=== PATIENT | female | born 1970 | race Caucasian/White ===

== ENCOUNTER 2018-08-19 09:46 | Emergency (ER) | payer BC, MEDICAID ==
--- NOTE | 2018-08-19 10:42 | EDM.PDOC ---
ED HPI GENERAL MEDICAL PROBLEM - General Stated Complaint: SICK Time Seen by Provider: 08/19/18 09:46 Source of Information: Reports: Patient, Family History Limitations: Reports: No Limitations - History of Present Illness INITIAL COMMENTS - FREE TEXT/NARRATIVE: 48 y.o.w.f came with her duet to acute onset of N/V/D in the past few days. No trauma, possible sick contact. Food poisoning unlikely, no SOB or chest pain. No other acute med issue. BP 117/99 RR 18 Pulse ox 100% on RA Temp 36.4 pulse 87 Onset Date: 08/18/18 Onset Time: 09:00 Duration: Day(s):, Getting Worse, Intermittent Location: Reports: Abdomen Quality: Reports: Burning Severity: Moderate Improves with: Reports: Rest Worsens with: Reports: Eating Context: Reports: Sick Contact Associated Symptoms: Reports: Nausea/Vomiting Bilateral rib & lower back Pain Score (Numeric/FACES): 5 - Related Data Allergies Allergy/AdvReac Type Severity Reaction Status Date / Time bee venom protein (honey bee) Allergy Difficulty Verified 08/19/18 10:09 Swallowing Home Meds: Home Meds Ciprofloxacin 500 mg PO BID #20 ml 08/19/18 [Rx] EPINEPHrine [Epinephrine] 0.3 ml IM ASDIRECTED PRN 08/19/18 [History] Ondansetron [Zofran Odt] 8 mg PO Q6H PRN #12 tab.rapdis 08/19/18 [Rx] ED ROS GENERAL - Review of Systems Review Of Systems: See Below Constitutional: Reports: No Symptoms HEENT: Reports: No Symptoms Respiratory: Reports: No Symptoms Cardiovascular: Reports: No Symptoms Endocrine: Reports: No Symptoms GI/Abdominal: Reports: Diarrhea, Nausea, Vomiting : Reports: No Symptoms Musculoskeletal: Reports: No Symptoms Skin: Reports: No Symptoms Neurological: Reports: No Symptoms Psychiatric: Reports: No Symptoms Hematologic/Lymphatic: Reports: No Symptoms Immunologic: Reports: No Symptoms ED EXAM, GENERAL - Physical Exam Exam: See Below Exam Limited By: No Limitations General Appearance: Alert, WD/WN, Moderate Distress Eye Exam: Bilateral Eye: Normal Inspection Ears: Normal External Exam Ear Exam: Bilateral Ear: Auricle Normal Nose: Normal Inspection Throat/Mouth: Normal Inspection, Normal Lips, Normal Voice, No Airway Compromise , Other (dryu mucosal membrane) Head: Atraumatic, Normocephalic Neck: Normal Inspection, Supple Respiratory/Chest: No Respiratory Distress, Lungs Clear, Normal Breath Sounds Cardiovascular: Normal Peripheral Pulses, Regular Rate, Rhythm Peripheral Pulses: 2+: Brachial (L) GI/Abdominal: No Organomegaly, No Abnormal Bruit, No Mass, Pelvis Stable, Abnormal Bowel Sounds (Female) Exam: Deferred Rectal (Female) Exam: Deferred Back Exam: Normal Inspection, Full Range of Motion Extremities: Normal Inspection, Normal Range of Motion Neurological: Alert, Oriented, CN II-XII Intact, Normal Cognition, Normal Gait Psychiatric: Normal Affect, Normal Mood Skin Exam: Warm, Dry, Intact, Normal Color, No Rash Lymphatic: No Adenopathy EKG INTERPRETATION EKG Date: 08/19/18 Time: 10:10 Rhythm: NSR Rate (Beats/Min): 87 [place]: Normal P-Wave: Present QRS: Normal ST-T: Normal QT: Normal Comparison: NA - No Prior EKG Course - Vital Signs Text/Narrative:: 48 y.o.w.f came with her duet to acute onset of N/V/D in the past few days. No trauma, possible sick contact. Food poisoning unlikely, no SOB or chest pain. No other acute med issue. BP 117/99 RR 18 Pulse ox 100% on RA Temp 36.4 pulse 87 PE: WNWD W F with acute gastroenteritis Labs: CBC nl BMP: Mildly elevated AST/ALT UA: UTI with hematuria Impression: Gastroenteritis viral UTI dehydration Tx: Zofran, NS, Levaquin Reexam: Improved Plan: D/C with instructions Last Recorded V/S: Last Vital Signs Temp 36.4 C 08/19/18 10:05 Pulse 74 08/19/18 12:35 Resp 18 08/19/18 12:35 BP 146/76 H 08/19/18 12:35 Pulse Ox 99 08/19/18 12:35 - Orders/Labs/Meds Orders: Active Orders 24 hr Category Date Time Status EKG Documentation Completion [RC] ASDIRECTED Care 08/19/18 13:50 Active CULTURE URINE [RM] Stat Lab 08/19/18 10:25 Results EKG 12 Lead [EK] Routine Ther 08/19/18 10:00 Ordered Labs: Laboratory Tests 08/19/18 08/19/18 08/19/18 Range/Units 10:25 10:25 10:25 WBC 7.9 (4.5-12.0) X10-3/uL RBC 4.67 (3.23-5.20) x10(6)uL Hgb 13.4 (11.5-15.5) g/dL Hct 40.2 (30.0-51.3) % MCV 86.0 (80-96) fL MCH 28.6 (27.7-33.6) pg MCHC 33.3 (32.2-35.4) g/dL RDW 13.1 (11.5-15.5) % Plt Count 310 (125-369) X10(3)uL MPV 7.8 (7.4-10.4) fL Neut % (Auto) 71.6 (46-82) % Lymph % (Auto) 22.3 (13-37) % [place] % (Auto) 4.7 (4-12) % Eos % (Auto) 1 (1.0-5.0) % Baso % (Auto) 0 (0-2) % Neut # (Auto) 5.6 (1.6-8.3) # Lymph # (Auto) 1.8 (0.6-5.0) # [place] # (Auto) 0.4 (0.0-1.3) # Eos # (Auto) 0.1 (0.0-0.8) # Baso # (Auto) 0.0 (0.0-0.2) # Sodium 138 (135-145) mmol/L Potassium 4.0 (3.5-5.3) mmol/L Chloride 102 (100-110) mmol/L Carbon Dioxide 24 (21-32) mmol/L BUN 14 (7-18) mg/dL Creatinine 0.9 (0.55-1.02) mg/dL Est Cr Clr Drug Dosing 67.29 mL/min Estimated GFR (MDRD) > 60 (>60) BUN/Creatinine Ratio 15.6 (9-20) Glucose 128 H (80-116) mg/dL Lactic Acid (0.4-2.2) mmol/L Calcium 8.4 L (8.6-10.2) mg/dL Total Bilirubin (0.1-1.3) mg/dL Direct Bilirubin (0.10-0.20) mg/dL AST (5-25) IU/L ALT (12-36) U/L Alkaline Phosphatase (56-112) IU/L Creatine Kinase 25 L (60-160) IU/L Total Protein (6.0-8.0) g/dL Albumin (3.5-5.2) g/dL Urine Color Yellow (YELLOW) Urine Appearance Cloudy (CLEAR) Urine pH 5.0 (5.0-6.5) Ur Specific [place] 1.025 (1.010-1.025) Urine Protein Negative (NEGATIVE) mg/dL Urine Glucose (UA) Normal (NORMAL) mg/dL Urine Ketones Negative (NEGATIVE) mg/dL Urine Occult Blood Moderate H (NEGATIVE) Urine Nitrite Negative (NEGATIVE) Urine Bilirubin Small H (NEGATIVE) Urine Urobilinogen 1 H (NEGATIVE) mg/dL Ur Leukocyte Esterase Moderate H (NEGATIVE) Urine RBC 5-10 H (0-5) Urine WBC 20-30 H (0-5) Ur Squamous Epith Cells Moderate H (NS,R,O) Urine Bacteria Many H (NS) 08/19/18 08/19/18 Range/Units 10:25 10:25 WBC (4.5-12.0) X10-3/uL RBC (3.23-5.20) x10(6)uL Hgb (11.5-15.5) g/dL Hct (30.0-51.3) % MCV (80-96) fL MCH (27.7-33.6) pg MCHC (32.2-35.4) g/dL RDW (11.5-15.5) % Plt Count (125-369) X10(3)uL MPV (7.4-10.4) fL Neut % (Auto) (46-82) % Lymph % (Auto) (13-37) % [place] % (Auto) (4-12) % Eos % (Auto) (1.0-5.0) % Baso % (Auto) (0-2) % Neut # (Auto) (1.6-8.3) # Lymph # (Auto) (0.6-5.0) # [place] # (Auto) (0.0-1.3) # Eos # (Auto) (0.0-0.8) # Baso # (Auto) (0.0-0.2) # Sodium (135-145) mmol/L Potassium (3.5-5.3) mmol/L Chloride (100-110) mmol/L Carbon Dioxide (21-32) mmol/L BUN (7-18) mg/dL Creatinine (0.55-1.02) mg/dL Est Cr Clr Drug Dosing mL/min Estimated GFR (MDRD) (>60) BUN/Creatinine Ratio (9-20) Glucose (80-116) mg/dL Lactic Acid 0.8 (0.4-2.2) mmol/L Calcium (8.6-10.2) mg/dL Total Bilirubin 0.5 (0.1-1.3) mg/dL Direct Bilirubin 0.10 (0.10-0.20) mg/dL AST 28 H (5-25) IU/L ALT 39 H (12-36) U/L Alkaline Phosphatase 94 (56-112) IU/L Creatine Kinase (60-160) IU/L Total Protein 7.3 (6.0-8.0) g/dL Albumin 3.2 L (3.5-5.2) g/dL Urine Color (YELLOW) Urine Appearance (CLEAR) Urine pH (5.0-6.5) Ur Specific [place] (1.010-1.025) Urine Protein (NEGATIVE) mg/dL Urine Glucose (UA) (NORMAL) mg/dL Urine Ketones (NEGATIVE) mg/dL Urine Occult Blood (NEGATIVE) Urine Nitrite (NEGATIVE) Urine Bilirubin (NEGATIVE) Urine Urobilinogen (NEGATIVE) mg/dL Ur Leukocyte Esterase (NEGATIVE) Urine RBC (0-5) Urine WBC (0-5) Ur Squamous Epith Cells (NS,R,O) Urine Bacteria (NS) Meds: Medications Discontinued Medications Generic Name Dose Route Start Last Admin Trade Name Freq PRN Reason Stop Dose Admin Sodium Chloride 1,000 mls @ 999 mls/hr 08/19/18 10:58 08/19/18 11:33 Normal Saline IV 08/19/18 11:58 999 mls/hr .BOLUS ONE Administration Levofloxacin 500 mg 08/19/18 11:28 08/19/18 12:05 Levaquin PO 08/19/18 11:29 500 mg ONETIME ONE Administration Ondansetron HCl 8 mg 08/19/18 10:53 08/19/18 12:35 Zofran Odt PO 08/19/18 10:54 Not Given ONETIME STA Ondansetron HCl 8 mg 08/19/18 10:58 08/19/18 11:35 Zofran IVPUSH 08/19/18 10:59 8 mg ONETIME ONE Administration Departure - Departure Time of Disposition: 12:36 Disposition: Home, Self-Care 01 Condition: Good Clinical Impression: Gastroenteritis, Dehydration, UTI (urinary tract infection) - Discharge Information Prescriptions: Ciprofloxacin 500 mg PO BID #20 ml Ondansetron [Zofran Odt] 8 mg PO Q6H PRN #12 tab.rapdis PRN Reason: for nausea/vomiting Instructions: Ondansetron injection, Viral Gastroenteritis, Adult, [id number] , Urinary Tract Infection, Adult, [id number], Dehydration, Adult, [id number] Referrals: Dmitriy Cote MD [Primary Care Provider] - Forms: ED Department Discharge Additional Instructions: Please take Zofran for nausea, Cipro as recommended, Please increase water intake, please follow up as needed, come latasha if your symptoms get worse acutely. - My Orders Last 24 Hours: My Active Orders 08/19/18 10:00 EKG 12 Lead [EK] Routine 08/19/18 10:25 CULTURE URINE [RM] Stat 08/19/18 13:50 EKG Documentation Completion [RC] ASDIRECTED - Assessment/Plan Last 24 Hours: My Active Orders 08/19/18 10:00 EKG 12 Lead [EK] Routine 08/19/18 10:25 CULTURE URINE [RM] Stat 08/19/18 13:50 EKG Documentation Completion [RC] ASDIRECTED
[2018-08-19] MEDS ORDERED: Ondansetron 8 MG Tab.DIS PO STA (10:53)
[2018-08-19] MEDS ORDERED: Ondansetron 4 MG/2 ML SDV IVPUSH ONE (10:58)
[2018-08-19] MEDS ORDERED: Sodium Chloride 0.9% 1,000 ML IV ONE (10:58)
[2018-08-19] MEDS ORDERED: Levofloxacin 500 MG Tab PO ONE (11:28)
== END 2018-08-19 12:55 | disposition home or self-care (01) ==
LOC: FB.ED 09:46
DX: A08.4 Viral intestinal infection, unspecified (principal); E86.0 Dehydration; N39.0 Urinary tract infection, site not specified; Z91.030 Bee allergy status; Z79.899 Other long term (current) drug therapy
CPT/HCPCS: 36415; 80048; 80076; 81001; 82550; 83605; 85025; 87086; 93005; 96361; 96374; 99284; A9270; J2405; J7030